=== PATIENT | female | born 1935 | race Caucasian/White ===

== ENCOUNTER 2018-01-05 12:54 | Inpatient (IN) | payer BC, MEDICARE ==
[2018-01-05 13:42] LABS: ADD MAN DIFF? NO
[2018-01-05 13:48] LABS: WHITE BLOOD COUNT 5.7 10^3/ul (4.8-10.8)
[2018-01-05 13:48] LABS: BASOPHIL # 0.1 10^3/ul (0.0-0.1); BASOPHILS % 1.2 % (0.0-2.0); EOSINOPHILS # 0.2 10^3/ul (0.0-0.5); EOSINOPHILS % 2.6 % (0.0-7.0); HEMATOCRIT 42.7 % (37.0-47.0); LYMPHOCYTES # 0.7 10^3/ul (0.8-2.9); LYMPHOCYTES % 12.2 % (15.0-51.0); MEAN CORPUSCULAR HEMOGLOBIN 28.9 pg (29.0-33.0); MEAN CORPUSCULAR HGB CONC 32.8 g/dl (32.0-37.0); MEAN CORPUSCULAR VOLUME 88.2 fl (82.0-101.0); MEAN PLATELET VOLUME 10.3 fl (7.4-10.4); MONOCYTE # 0.5 10^3/ul (0.3-0.9); MONOCYTES % 9.4 % (0.0-11.0); NEUTROPHIL # 4.3 10^3/ul (1.6-7.5); NEUTROPHILS % 74.3 % (39.0-77.0); PLATELET COUNT 268 10^3/UL (140-415); RED BLOOD COUNT 4.84 10^6/ul (4.20-5.40); RED CELL DISTRIBUTION WIDTH 13.1 % (11.5-14.5)
[2018-01-05 14:06] LABS: ALANINE AMINOTRANSFERASE 17 IU/L (13-69); ALBUMIN 4.3 g/dl (3.3-4.9); ALBUMIN/GLOBULIN RATIO 1.22; ALKALINE PHOSPHATASE 83 IU/L (42-121); ANION GAP 14 (8-16); ASPARTATE AMINO TRANSFERASE 42 IU/L (15-46); BILIRUBIN,INDIRECT 0.5 mg/dl (0-1.1); BILIRUBIN,TOTAL 0.5 mg/dl (0.2-1.3); BLOOD UREA NITROGEN 13 mg/dl (7-20); CALCIUM 9.7 mg/dl (8.4-10.2); CARBON DIOXIDE 28 mmol/L (21-31); CHLORIDE 106 mmol/L (97-110); GLUCOSE 89 mg/dl (70-220); POTASSIUM 4.8 mmol/L (3.5-5.1); SODIUM 143 mmol/L (135-144); TOTAL PROTEIN 7.8 g/dl (6.1-8.1)
[2018-01-05 14:08] LABS: PROTIME 13.3 Sec (11.9-14.9)
[2018-01-05 14:09] LABS: PARTIAL THROMBOPLASTIN TIME 25.3 Sec (25.0-35.0)
[2018-01-05 14:14] LABS: B-TYPE NATRIURETIC PEPTIDE 301 PG/ML (0-450)
[2018-01-05] MEDS: SOD CHLORIDE 0.9% 100 ML (15:17)
[2018-01-05] MEDS: IOHEXOL 100 ML (15:17)
[2018-01-05] MEDS: LIDOCAINE 1% (MPF) 5 ML VIAL (15:30)
[2018-01-05 16:19] LABS: FLD PMN% 4.5 %; FLD RBC 3000 /uL; FLD WBC 1195 /cmm
[2018-01-05 16:21] LABS: FLD CLARITY MILKY; FLD COLOR YELLOW
[2018-01-05 16:21] LABS: FLD TYPE PLEURAL
[2018-01-05 16:23] LABS: FLD MN% 95.5 %
[2018-01-05 16:33] LABS: FLUID GLUCOSE 86 mg/dl; FLUID TOTAL PROTEIN 4.2 g/dl; FLUID TYPE FLUID
[2018-01-05 16:34] LABS: FLUID LD 449 U/L; FLUID TYPE FLUID
[2018-01-05] MEDS: SOD CHLORIDE 0.9% 1,000 ML IV (17:44)
[2018-01-05] MEDS ORDERED: ONDANSETRON 4 MG INJ IV (18:00)
[2018-01-05] MEDS ORDERED: ONDANSETRON 4 MG TAB PO (18:00)
[2018-01-05] MEDS ORDERED: ACETAMINOPHEN 325 MG TAB PO ×2 (18:00)
[2018-01-05] MEDS ORDERED: DOCUSATE SODIUM 100 MG CAP PO (18:00)
[2018-01-05] MEDS ORDERED: HYDROCODONE/APAP (5/325) TAB PO (18:00)
[2018-01-05] MEDS ORDERED: ZOLPIDEM 5 MG TAB PO (18:00)
[2018-01-05] MEDS ORDERED: NACL 0.9% 3 ML SYG IV (18:00)
[2018-01-05 21:00] LABS: URIC ACID 7.1 mg/dl (3.1-7.9)
[2018-01-05 21:00] LABS: LACTATE DEHYDROGENASE 825 IU/L (313-618)
[2018-01-05] MEDS: ATORVASTATIN 10 MG TAB PO (21:00)
[2018-01-05 21:04] LABS: INR 1.05; PROTIME 13.8 Sec (11.9-14.9); PT RATIO 1.1
[2018-01-05 21:05] LABS: PARTIAL THROMBOPLASTIN TIME 26.1 Sec (25.0-35.0)
[2018-01-05 21:12] LABS: IMMUNOGLOBULIN A 133 mg/dl (70-400); IMMUNOGLOBULIN G 909 mg/dl (700-1600); IMMUNOGLOBULIN M 38 mg/dl (40-230)
[2018-01-05] MEDS ORDERED: HEPARIN 5,000 UNIT/0.5 ML VIAL SC (22:00)
[2018-01-05] MEDS: FAMOTIDINE 20 MG TAB PO (22:36)
[2018-01-06 06:04] LABS: ADD MAN DIFF? NO
[2018-01-06 06:12] LABS: WHITE BLOOD COUNT 4.8 10^3/ul (4.8-10.8)
[2018-01-06 06:12] LABS: ABNORMAL IP MESSAGE 1; BASOPHIL # 0.1 10^3/ul (0.0-0.1); BASOPHILS % 1.1 % (0.0-2.0); EOSINOPHILS # 0.2 10^3/ul (0.0-0.5); EOSINOPHILS % 3.4 % (0.0-7.0); HEMATOCRIT 40.1 % (37.0-47.0); HEMOGLOBIN 13.4 g/dl (12.0-16.0); LYMPHOCYTES # 0.5 10^3/ul (0.8-2.9); LYMPHOCYTES % 10.7 % (15.0-51.0); MEAN CORPUSCULAR HEMOGLOBIN 29.1 pg (29.0-33.0); MEAN CORPUSCULAR HGB CONC 33.4 g/dl (32.0-37.0); MEAN PLATELET VOLUME 10.6 fl (7.4-10.4); MONOCYTE # 0.5 10^3/ul (0.3-0.9); MONOCYTES % 9.7 % (0.0-11.0); NEUTROPHIL # 3.6 10^3/ul (1.6-7.5); NEUTROPHILS % 74.5 % (39.0-77.0); PLATELET COUNT 239 10^3/UL (140-415); RED BLOOD COUNT 4.61 10^6/ul (4.20-5.40); RED CELL DISTRIBUTION WIDTH 13.2 % (11.5-14.5)
[2018-01-06 06:19] LABS: POSITIVE DIFF @See below
[2018-01-06 06:26] LABS: HEMOGLOBIN A1C 5.6 % (0-5.9)
[2018-01-06 07:08] LABS: ALANINE AMINOTRANSFERASE 23 IU/L (13-69); ALBUMIN 3.7 g/dl (3.3-4.9); ALBUMIN/GLOBULIN RATIO 1.15; ALKALINE PHOSPHATASE 76 IU/L (42-121); ANION GAP 13 (8-16); ASPARTATE AMINO TRANSFERASE 37 IU/L (15-46); BILIRUBIN,INDIRECT 0.6 mg/dl (0-1.1); BILIRUBIN,TOTAL 0.6 mg/dl (0.2-1.3); BLOOD UREA NITROGEN 12 mg/dl (7-20); CALCIUM 9.2 mg/dl (8.4-10.2); CARBON DIOXIDE 25 mmol/L (21-31); CHLORIDE 105 mmol/L (97-110); CREATININE 0.78 mg/dl (0.44-1.00); GLUCOSE 88 mg/dl (70-220); POTASSIUM 4.1 mmol/L (3.5-5.1); SODIUM 139 mmol/L (135-144); TOTAL PROTEIN 6.9 g/dl (6.1-8.1); URIC ACID 6.9 mg/dl (3.1-7.9)
[2018-01-06] MEDS: MULTIVITAMINS THERAPEUTIC TAB PO (09:00)
[2018-01-06] MEDS: ESTROGENS CONJUGATED 0.625 MG TAB PO (09:00)
[2018-01-06] MEDS: IODIXANOL LOCM 100 ML BTL (09:52)
[2018-01-06] MEDS: SOD CHLORIDE 0.9% 100 ML (09:52)
[2018-01-06] MEDS: LIDOCAINE 1% (MPF) 5 ML VIAL (11:01)
[2018-01-06] MEDS: MIDAZOLAM 1 MG/ML 2 ML INJ (11:56)
[2018-01-06] MEDS: SOD CHLORIDE 0.9% 500 ML (11:56)
[2018-01-06] MEDS: FENTAnyl 50 MCG/ML VIAL (11:56)
[2018-01-06] MEDS: FAMOTIDINE 20 MG TAB PO (14:23)
[2018-01-06] MEDS: ALLOPURINOL 300 MG TAB PO (14:23)
[2018-01-06] MEDS: HEPARIN 5,000 UNIT/0.5 ML VIAL SC (15:39)
[2018-01-07 03:22] LABS: PROTEIN, TOTAL 6.6 g/dL (6.1-8.1)
[2018-01-07 17:02] LABS: ALBUMIN 3.8 g/dL (3.8-4.8); ALPHA-1-GLOBULINS 0.4 g/dL (0.2-0.3); ALPHA-2-GLOBULINS 0.9 g/dL (0.5-0.9); BETA 2 GLOBULINS 0.3 g/dL (0.2-0.5); BETA GLOBULINS 0.4 g/dL (0.4-0.6); GAMMA GLOBULINS 0.9 g/dL (0.8-1.7)
== END 2018-01-06 17:12 | disposition home or self-care (01) | DRG 841 ==
LOC: E/R 12:54 → 6WM 17:45
PROC: 0W993ZZ Drainage of Right Pleural Cavity, Percutaneous Approach (ICD-10-PCS; principal; 2018-01-05)
PROC: 0WBH3ZX Excision of Retroperitoneum, Percutaneous Approach, Diagnostic (ICD-10-PCS; 2018-01-06)
DX: C85.98 Non-Hodgkin lymphoma, unspecified, lymph nodes of multiple sites (principal); J94.0 Chylous effusion; E78.5 Hyperlipidemia, unspecified; N95.9 Unspecified menopausal and perimenopausal disorder; M41.9 Scoliosis, unspecified
CPT/HCPCS: 36415; 71045; 71275; 74177; 76942; 77012; 80053; 82042; 82784; 82945; 83036; 83615; 83735; 83880; 84155; 84157; 84165; 84443; 84560; 85025; 85610; 85730; 86320; 88104; 88305; 88307; 88313; 89051; 99285-25

== ENCOUNTER 2018-01-20 09:56 | Inpatient (IN) | payer BC ==
[2018-01-20] MEDS ORDERED: ZOLPIDEM 5 MG TAB PO (11:00)
[2018-01-20] MEDS: ESTROGENS CONJUGATED 0.625 MG TAB PO (12:00)
[2018-01-20 12:36] LABS: ADD MAN DIFF? NO
[2018-01-20 12:39] LABS: ABNORMAL IP MESSAGE 1; BASOPHIL # 0.1 10^3/ul (0.0-0.1); EOSINOPHILS # 0.1 10^3/ul (0.0-0.5); EOSINOPHILS % 2.2 % (0.0-7.0); HEMATOCRIT 39.5 % (37.0-47.0); HEMOGLOBIN 12.9 g/dl (12.0-16.0); LYMPHOCYTES # 0.6 10^3/ul (0.8-2.9); LYMPHOCYTES % 9.6 % (15.0-51.0); MEAN CORPUSCULAR HEMOGLOBIN 28.8 pg (29.0-33.0); MEAN CORPUSCULAR HGB CONC 32.7 g/dl (32.0-37.0); MEAN CORPUSCULAR VOLUME 88.2 fl (82.0-101.0); MONOCYTE # 0.6 10^3/ul (0.3-0.9); MONOCYTES % 9.6 % (0.0-11.0); NEUTROPHIL # 4.6 10^3/ul (1.6-7.5); NEUTROPHILS % 77.3 % (39.0-77.0); PLATELET COUNT 214 10^3/UL (140-415); POSITIVE DIFF @See below; RED BLOOD COUNT 4.48 10^6/ul (4.20-5.40); RED CELL DISTRIBUTION WIDTH 13.3 % (11.5-14.5)
[2018-01-20 12:39] LABS: WHITE BLOOD COUNT 5.9 10^3/ul (4.8-10.8)
[2018-01-20 13:04] LABS: ALANINE AMINOTRANSFERASE 31 IU/L (13-69); ALBUMIN 3.6 g/dl (3.3-4.9); ALKALINE PHOSPHATASE 82 IU/L (42-121); ANION GAP 13 (8-16); ASPARTATE AMINO TRANSFERASE 40 IU/L (15-46); BILIRUBIN,INDIRECT 0.6 mg/dl (0-1.1); BILIRUBIN,TOTAL 0.6 mg/dl (0.2-1.3); BLOOD UREA NITROGEN 13 mg/dl (7-20); CALCIUM 9.2 mg/dl (8.4-10.2); CARBON DIOXIDE 26 mmol/L (21-31); CHLORIDE 103 mmol/L (97-110); CREATININE 0.78 mg/dl (0.44-1.00); GLUCOSE 83 mg/dl (70-220); LACTATE DEHYDROGENASE 908 IU/L (313-618); MAGNESIUM 1.8 mg/dl (1.7-2.5); POTASSIUM 4.2 mmol/L (3.5-5.1); SODIUM 138 mmol/L (135-144); TOTAL PROTEIN 6.6 g/dl (6.1-8.1); URIC ACID 5.1 mg/dl (3.1-7.9)
[2018-01-20] MEDS: DIPHENHYDRAMINE 50 MG CAP PO (14:48)
[2018-01-20] MEDS: ACETAMINOPHEN 500 MG TAB PO (14:49)
[2018-01-20] MEDS: NS + KCL 20 MEQ 1,000 ML IV (14:55)
[2018-01-20] MEDS ORDERED: MEPERIDINE 50 MG INJ IV (17:00)
[2018-01-20] MEDS ORDERED: EPINEPHrine 1 MG INJ IM (17:00)
[2018-01-20] MEDS ORDERED: DIPHENHYDRAMINE 50 MG CAP PO (17:00)
[2018-01-20] MEDS: SODIUM CHLORIDE 0.9% IV (17:05)
[2018-01-20] MEDS: RITUXIMAB IV (17:05)
[2018-01-20] MEDS: ONDANSETRON 4 MG INJ IV (19:26)
[2018-01-20] MEDS: HYDROCODONE/APAP (5/325) TAB PO (19:51)
[2018-01-20] MEDS: ATORVASTATIN 10 MG TAB PO (21:00)
[2018-01-20] MEDS ORDERED: morphine LIQ (10 MG/5 ML) CUP PO (21:00)
[2018-01-21] MEDS: NS + KCL 20 MEQ 1,000 ML IV ×3 (00:30→18:09)
[2018-01-21] MEDS: HYDROCODONE/APAP (5/325) TAB PO ×2 (03:39→11:31)
[2018-01-21 05:43] LABS: ABNORMAL IP MESSAGE 1; ADD MAN DIFF? NO; BASOPHILS % 0.5 % (0.0-2.0); EOSINOPHILS # 0.1 10^3/ul (0.0-0.5); EOSINOPHILS % 1.1 % (0.0-7.0); HEMATOCRIT 36.3 % (37.0-47.0); HEMOGLOBIN 12.1 g/dl (12.0-16.0); LYMPHOCYTES # 0.1 10^3/ul (0.8-2.9); LYMPHOCYTES % 2.3 % (15.0-51.0); MEAN CORPUSCULAR HEMOGLOBIN 29.1 pg (29.0-33.0); MEAN CORPUSCULAR HGB CONC 33.3 g/dl (32.0-37.0); MEAN CORPUSCULAR VOLUME 87.3 fl (82.0-101.0); MEAN PLATELET VOLUME 10.8 fl (7.4-10.4); MONOCYTE # 0.2 10^3/ul (0.3-0.9); MONOCYTES % 2.8 % (0.0-11.0); NEUTROPHIL # 5.3 10^3/ul (1.6-7.5); NEUTROPHILS % 92.9 % (39.0-77.0); PLATELET COUNT 186 10^3/UL (140-415); RED BLOOD COUNT 4.16 10^6/ul (4.20-5.40); RED CELL DISTRIBUTION WIDTH 13.4 % (11.5-14.5)
[2018-01-21 05:43] LABS: WHITE BLOOD COUNT 5.7 10^3/ul (4.8-10.8)
[2018-01-21 06:06] LABS: POSITIVE DIFF @See below
[2018-01-21 06:26] LABS: ALANINE AMINOTRANSFERASE 29 IU/L (13-69); ALBUMIN 3.1 g/dl (3.3-4.9); ALBUMIN/GLOBULIN RATIO 1.06; ALKALINE PHOSPHATASE 75 IU/L (42-121); ANION GAP 13 (8-16); ASPARTATE AMINO TRANSFERASE 41 IU/L (15-46); BILIRUBIN,INDIRECT 0.6 mg/dl (0-1.1); BILIRUBIN,TOTAL 0.6 mg/dl (0.2-1.3); BLOOD UREA NITROGEN 13 mg/dl (7-20); CALCIUM 8.1 mg/dl (8.4-10.2); CARBON DIOXIDE 22 mmol/L (21-31); CHLORIDE 101 mmol/L (97-110); CREATININE 0.75 mg/dl (0.44-1.00); GLUCOSE 88 mg/dl (70-220); LACTATE DEHYDROGENASE 1064 IU/L (313-618); MAGNESIUM 1.6 mg/dl (1.7-2.5); POTASSIUM 4.2 mmol/L (3.5-5.1); SODIUM 132 mmol/L (135-144); URIC ACID 4.8 mg/dl (3.1-7.9)
[2018-01-21] MEDS: ESTROGENS CONJUGATED 0.625 MG TAB PO (09:00)
[2018-01-21 09:47] LABS: INR 1.09; PARTIAL THROMBOPLASTIN TIME 28.1 Sec (25.0-35.0); PROTIME 14.3 Sec (11.9-14.9); PT RATIO 1.1
[2018-01-21] MEDS: ACETAMINOPHEN 325 MG TAB PO (10:09)
[2018-01-21] MEDS: BENDAMUSTINE HCL IV ×2 (10:19→18:00)
[2018-01-21] MEDS: ONDANSETRON 4 MG INJ IV (10:19)
[2018-01-21] MEDS: SOD CHLORIDE 0.9% IV ×2 (10:19→18:00)
[2018-01-21] MEDS: LIDOCAINE 1% (MPF) 5 ML VIAL (15:16)
[2018-01-21] MEDS: ATORVASTATIN 10 MG TAB PO (20:52)
[2018-01-22] MEDS: ONDANSETRON 4 MG INJ IV ×2 (05:15→09:07)
[2018-01-22] MEDS: NS + KCL 20 MEQ 1,000 ML IV (06:30)
[2018-01-22] MEDS: ESTROGENS CONJUGATED 0.625 MG TAB PO (09:00)
[2018-01-22] MEDS: HYDROCODONE/APAP (5/325) TAB PO (09:07)
[2018-01-22] MEDS: FUROSEMIDE 40 MG INJ IV (10:18)
[2018-01-22 11:21] LABS: ADD MAN DIFF? NO
[2018-01-22 11:24] LABS: ABNORMAL IP MESSAGE 1; BASOPHILS % 0.4 % (0.0-2.0); EOSINOPHILS # 0.1 10^3/ul (0.0-0.5); EOSINOPHILS % 0.8 % (0.0-7.0); HEMATOCRIT 39.7 % (37.0-47.0); HEMOGLOBIN 13.5 g/dl (12.0-16.0); LYMPHOCYTES # 0.3 10^3/ul (0.8-2.9); LYMPHOCYTES % 4.3 % (15.0-51.0); MEAN CORPUSCULAR HEMOGLOBIN 28.7 pg (29.0-33.0); MEAN CORPUSCULAR VOLUME 84.5 fl (82.0-101.0); MEAN PLATELET VOLUME 10.6 fl (7.4-10.4); MONOCYTE # 0.4 10^3/ul (0.3-0.9); MONOCYTES % 5.4 % (0.0-11.0); NEUTROPHIL # 6.6 10^3/ul (1.6-7.5); NEUTROPHILS % 88.8 % (39.0-77.0); PLATELET COUNT 189 10^3/UL (140-415); RED CELL DISTRIBUTION WIDTH 13.2 % (11.5-14.5)
[2018-01-22 11:24] LABS: WHITE BLOOD COUNT 7.4 10^3/ul (4.8-10.8)
[2018-01-22 11:25] LABS: POSITIVE DIFF @See below
[2018-01-22] MEDS: SOD CHLORIDE 0.9% IV (11:29)
[2018-01-22] MEDS: BENDAMUSTINE HCL IV (11:29)
[2018-01-22 11:47] LABS: ALANINE AMINOTRANSFERASE 26 IU/L (13-69); ALBUMIN 3.6 g/dl (3.3-4.9); ALBUMIN/GLOBULIN RATIO 1.28; ALKALINE PHOSPHATASE 79 IU/L (42-121); ANION GAP 13 (8-16); ASPARTATE AMINO TRANSFERASE 47 IU/L (15-46); BILIRUBIN,INDIRECT 0.3 mg/dl (0-1.1); BILIRUBIN,TOTAL 0.3 mg/dl (0.2-1.3); BLOOD UREA NITROGEN 14 mg/dl (7-20); CALCIUM 8.4 mg/dl (8.4-10.2); CARBON DIOXIDE 25 mmol/L (21-31); CHLORIDE 96 mmol/L (97-110); CREATININE 0.71 mg/dl (0.44-1.00); GLUCOSE 108 mg/dl (70-220); MAGNESIUM 1.7 mg/dl (1.7-2.5); POTASSIUM 5.1 mmol/L (3.5-5.1); SODIUM 129 mmol/L (135-144); TOTAL PROTEIN 6.4 g/dl (6.1-8.1); URIC ACID 5.8 mg/dl (3.1-7.9)
== END 2018-01-22 17:50 | disposition home or self-care (01) | DRG 847 ==
LOC: MS1 09:56
PROC: 3E03305 Introduction of Other Antineoplastic into Peripheral Vein, Percutaneous Approach (ICD-10-PCS; principal; 2018-01-20)
PROC: 0W993ZZ Drainage of Right Pleural Cavity, Percutaneous Approach (ICD-10-PCS; 2018-01-21)
DX: Z51.11 Encounter for antineoplastic chemotherapy (principal); C82.13 Follicular lymphoma grade II, intra-abdominal lymph nodes; J94.0 Chylous effusion; E78.5 Hyperlipidemia, unspecified; E87.70 Fluid overload, unspecified
CPT/HCPCS: 32555; 71045; 80053; 83615; 83735; 84560; 85025; 85610; 85730; 87081; J9310